=== PATIENT | female | born 1970 | race Hispanic/Latino ===

== ENCOUNTER 2021-07-13 21:48 | Emergency (ER) | payer BC ==
[~2021-07-13] VITALS: Ht 167.6 cm; Wt 74.8 kg
[2021-07-13 22:58] VITALS: BP 124/74
== END 2021-07-13 22:57 | disposition home or self-care (01) ==
LOC: EDH 21:48
DX: K59.00 Constipation, unspecified (principal); Z88.5 Allergy status to narcotic agent
CPT/HCPCS: 99281